=== PATIENT | male | born 1960 | race Caucasian/White ===

== ENCOUNTER 2018-11-23 18:50 | Emergency (ER) | payer OTHER ==
[2018-11-23] MEDS ORDERED: OXYMETAZOLINE 30 ML NASAL SPRAY EACHNARE ONE (19:09)
[2018-11-23] MEDS ORDERED: SILVER NITRATE APPLICATOR 1 APPL TP ONE (19:09)
--- NOTE | 2018-11-23 19:12 | EDPHY ---
General Time Seen by Provider: 11/23/18 19:10 Narrative: CLINICAL IMPRESSION: Right anterior Epistaxis ASSESSMENT/PLAN: Patient is a 58-year-old male with a significant history of atrial fibrillation , hyperlipidemia and chronic back pain who presents with bleeding from the right nares. Patient is afebrile and nontoxic-appearing, he is in no acute distress on arrival. Physical examination revealed bleeding along the right inferior septum. There was no obvious hematoma, perforation, foreign body, mass or evidence of a posterior epistaxis. Afrin was applied, TXA was saturated in gauze and applied for 20 min. Patient still with losing after TXA, silver nitrate applied with hemostasis achieved. The patient was observed for a period of time with no recurrent bleeding or evidence of posterior epistaxis. History and physical examination is consistent with right anterior epistaxis. On repeat examination the patient is well appearing, there is no active bleeding and no blood noted in the posterior pharynx. Patient was given a referral for ENT, he will call tomorrow to schedule an appointment. Strict return precautions were discussed- patient will return for recurrent bleeding, dizziness, headache, chest pain, shortness of breath or for any other concerning symptom. The patient and both verbalized understanding and they were in agreement with this plan. DIFFERENTIAL DX: Differential diagnosis includes but not limited to and in no particular order anterior epistaxis, posterior epistaxis, septal hematoma, septal perforation, mass, foreign body ED PROCEDURES: Procedure: Epistaxis control. After verbal consent was obtained, the patient was anesthetized with Afrin. The anterior epistaxis was identified. The patient was treated with TXA. Upon re-examination patient still oozing from right septum. Silver nitrate applied. Following the procedure the patient was re-examined and the bleeding was well controlled. The patient tolerated the procedure well. The procedure was performed by myself. ED COURSE: 2014: Case discussed with Dr. Enegl 2021: On repeat examination there is a small area of oozing along the inferior right septum. TXA applied. 2027: Still mild active ooze, silver nitrate applied. CHIEF COMPLAINT: Epistaxis HPI: Patient is a 58-year-old male with a significant history of atrial fibrillation , hyperlipidemia and chronic back pain who presents with bleeding from the right nares. Patient reports yesterday he was up in [place], experienced bleeding from his right nares which required him to go to the emergency department. Bleeding was visualized, packing was applied and the patient subsequently followed up with his primary care provider earlier this afternoon for packing removal. The packing was removed without difficulty, several hours went by when he experienced sudden onset bleeding from his right nares after bending down. He reports the bleeding was not as severe as yesterday however he was not able to get it completely controlled prior to coming to the emergency department. Patient is on full strength aspirin daily, denies any other antiplatelet or anticoagulation therapy. He denies any headache, dizziness, chest pain or shortness of breath. PMH: Atrial fibrillation, hyperlipidemia, chronic back pain Family History: Noncontributory Social History: Denies smoking, rare alcohol, denies illicit drug use REVIEW OF SYSTEMS: All other systems negative Constitutional: No fever, no chills, appetite change. Eyes: No discharge, vision change ENT: Epistaxis. No sore throat, congestion, ear pain. Cardiovascular: No chest pain, no palpitations. Respiratory: No cough, no shortness of breath. Gastrointestinal: No abdominal pain, no vomiting, diarrhea. Genitourinary: No hematuria, dysuria, flank pain, pelvic pain Musculoskeletal: No back pain, joint swelling, joint pain, myalgias. Skin: No rashes, color change. Neurological: No headache, dizziness, weakness. PHYSICAL EXAM: General Appearance: Patient is well-appearing, no acute distress. HENT: Normocephalic, atraumatic. Bilateral external ears are normal. Bilateral tympanic membranes are normal with pearly woodard reflex. Nares with large clots noted bilaterally. After blowing his nose and Afrin application I was able to visualize both nares. Small area of bleeding from the inferior right septum, no bleeding from the left naris. There is no septal perforation or hematoma. Oropharynx is clear, uvula is midline. There is no blood in the posterior pharynx. There is no tonsillar enlargement or exudate. The dentition is normal. Eyes: PERRLA, EOMI intact. Conjunctiva pink, no pallor or injection Neck: Supple, nontender, no lymphadenopathy, no midline pain, FROM, no meningismus. Respiratory: There are no retractions, lungs are clear to auscultation. Cardiac: Regular rate and rhythm, no murmurs or gallops. Gastrointestinal: Abdomen is soft, nontender, bowel sounds normal, no masses/ hernia, no rigidity, guarding or focal peritoneal findings. Neurological: Alert and oriented x 3, CN 2-12 grossly intact, normal gait no ataxia, DTR's intact, normal sensation and strength Skin: Warm, dry, no rashes, no nodules on palpation. Musculoskeletal: Extremities are symmetrical, full range of motion, no tenderness, deformity, swelling, or erythema. Psychiatric: Patient is oriented X 3, there is no agitation. MEDICAL DECISION MAKING: Patient was seen independently. Secondary supervising physician at time of evaluation was Dr. Engel, he did not evaluate this patient. Diagnosis: Epistaxis. New, requires workup Summary: See Assessment and Plan for summary of ED visit Clinical lab tests: Not applicable. Independent visualization of images, tracing, or specimens: Not applicable. Decision to obtain medical records or history from someone other than the patient: No Review / Summarize previous medical records: Yes Discussed patient with another provider: Yes, Dr. Engel Patient Progress: Stable, discharged. - History Smoking Status: Never smoked - Objective Vital Signs: Initial Vital Signs Heart Rate 52 L 11/23/18 18:55 Respiratory Rate 16 11/23/18 18:55 Blood Pressure 164/97 H 11/23/18 18:55 O2 Sat (%) 93 11/23/18 18:55 O2 Delivery Mode Room Air Allergies/Adverse Reactions: No Known Allergies Allergy (Unverified 11/23/18 18:57) Home Medications: Medication Instructions Recorded Glucosamine HCl [GLUCOSAMINE HCL] 500 mg PO 11/09/10 Multiple Supplements 11/09/10 Blood Thinner 04/25/16 Heart Meds 04/25/16 oxyCODONE/APAP 5/325 [Percocet 1 - 2 tab PO Q4-6PRN PRN #15 tab 04/25/16 5/325] Medications Given: Discontinued Medications Oxymetazoline HCl (Afrin Nasal [place]) 2 sprays EACHNARE EDNOW ONE Stop: 11/23/18 19:10 Last Admin: 11/23/18 19:20 Dose: 2 spray Silver Nitrate/Potassium Nitrate (Silver Nitrate Applicator) 2 each TP EDNOW ONE Stop: 11/23/18 19:10 Last Admin: 11/23/18 19:20 Dose: 2 each Tranexamic Acid (Cyklokapron) 500 mg TP EDNOW ONE Stop: 11/23/18 20:05 Last Admin: 11/23/18 21:14 Dose: 500 mg Departure - Departure Disposition: Home, Routine, Self-Care Clinical Impression: Epistaxis Condition: Good Instructions: Nosebleed (ED) Additional Instructions: DISCHARGE INSTRUCTIONS FROM YOUR DOCTOR Thank you for visiting our emergency department today. Please keep in mind that discharge from the emergency department does not mean that there is nothing wrong - it simply means that we have not identified an emergency condition that requires further evaluation or treatment in the hospital. You have been given an ENT referral, please call tomorrow to schedule a follow- up appointment. Avoid strenuous activity like heavy lifting, pushing, pulling, carrying, bearing down for the next 24 hours. Avoid nose blowing for 12-24 hours. Once the area is healed, consider using a saline nasal spray daily (ie: [place] or [place]). Do not use Afrin daily. You may use Afrin as directed with the nasal clamp for a recurrent nose bleed. Consider running a cool mist humidifier in your home. As discussed if the nose re-bleeds, apply pressure for timed 20 minutes and sit upright. Drink a glass of cold water. If you have recurrent bleeding, 2 squirts of Afrin in the side of bleeding. Apply clamp. Soak TXA in 2 x 2, roll [address] nares for 20 min. Recheck. If you are unable to get the bleeding under control return to the emergency department. Return for recurrent bleeding, development of fever, severe headache, dizziness or lightheadedness, fainting, chest pain, shortness of breath, severe headache, discolored drainage from the nose, other signs of bleeding like blood in the urine, unusual bruising, blood in the stool, vomiting blood, facial pain, difficulty breathing or swallowing, numbness, tingling, weakness, or for any other new, worrisome or worsening symptoms. People present with illnesses and injuries in different ways, and it is always possible that we have missed something. You may always return for re-evaluation if symptoms worsen or if they are not improving or if you develop new/different symptoms. Again, thank you for choosing our emergency department. We hope that you feel better. Referrals: ABDULAZIZ ARMSTRONG [Primary Care Provider] - As per Instructions Shamar Hernandez MD [Medical Doctor] - 1 day without fail
[2018-11-23] MEDS ORDERED: TRANEXAMIC ACID 1,000 MG/10 ML VIAL TP ONE (20:04)
[2018-11-23 21:16] VITALS: BP 152/88
== END 2018-11-23 21:16 | disposition home or self-care (01) ==
PROC: 3E09XGC Introduction of Other Therapeutic Substance into Nose, External Approach (ICD-10-PCS; principal; 2018-11-23)
DX: R04.0 Epistaxis (principal)